=== PATIENT | female | born 1985 | race Caucasian/White ===

== ENCOUNTER 2017-11-15 18:50 | Emergency (ER) | payer BC, SELFPAY ==
[2017-11-15 18:51] VITALS: BP 139/84; PULSE 110; RESP 19; TEMP 37.5; O2SAT 100; BMI 34.9
--- NOTE | 2017-11-15 19:06 | RAD_ITS ---
STUDY: X-RAY CHEST REASON FOR EXAM: Female, 32 years old. Palpitations and shortness of breath. TECHNIQUE: Single AP portable view of the chest. COMPARISON: None. FINDINGS: The lungs are clear and expanded. There is no demonstrated pleural abnormality. Normal size heart. Normal mediastinum and blake. Normal visualized pulmonary arteries. Normal visualized aortic arch and descending thoracic aorta. Normal visualized thoracic spine. Normal visualized ribs, clavicles, and shoulders. There is no demonstrated abnormality of the visualized soft tissue structures of the upper abdomen. RAD/Chest 1 View (Portable) IMPRESSION: Normal x-ray examination of the chest. Electronically Signed: Young Escobedo MD at 20:08 EST , Service support ,
--- NOTE | 2017-11-15 19:06 | EKG12_ITS ---
Test Reason : DIZZINESS Blood Pressure : / mmHG Vent. Rate : 111 BPM Atrial Rate : 111 BPM P-R Int : 154 ms QRS Dur : 088 ms QT Int : 336 ms P-R-T Axes : 037 019 014 degrees QTc Int : 456 ms Sinus tachycardia Otherwise normal ECG Confirmed by JASE KAUR, AIDEN ([id number]), editor dictionary DUANE HAND ([id number]) on 11/18/2017 3:49:25 PM Referred By: DEBORAH Confirmed By:AIDEN LAGUNA MD
--- NOTE | 2017-11-15 19:11 | ED.DCSUM_ITS ---
- ER Visit Summary Date of Service: 11/15/17 Chief Complaint: [] Palpitations History of Present Illness: The patient is a 32 F [] complaining of palpitations for the last 2 weeks. She reports she presented today because they were getting worse. She is concerned that she is having palpitations secondary to lower GI blood loss secondary to ulcerative colitis. She reports similar presentation requiring blood transfusion at this facility. Reports abdominal cramping with loose stools. Denies fevers. Denies chest pain. Reports mild shortness of breath. She does report looking more pale. Physical Examination: [] Afebrile, tachycardic at 110. Remainder of vital signs are within normal limits. 32-year-old female in no acute distress. HEENT reveals pale conjunctivae. Moist mucous membranes. Cardiovascular exam is regular rhythm with tachycardia. Lungs clear to auscultation. Abdomen is soft and nontender. Test Results: [] CBC reveals a hemoglobin of 5.2. BMP normal. LFTs normal. INR 1.0. Emergency Department Course and Treatment: [] Patient evaluated for lower GI bleed with a history of ulcerative colitis. Hemoglobin returned at 5.2 and 2 units of packed red blood cells were ordered and transfused in the emergency department. Case was discussed with [facility] hospitalist who has excepted the patient in transfer. Patient remained normotensive throughout the ED visit. She received 1 L normal saline upon arrival. Treatment Plan: [] Transfer to [facility]. Transfuse blood, GI consult. Disposition: [] Transfer, stable. Impression: [] Lower GI bleed History of ulcerative colitis Critical CARE time: 45 minutes This note was generated with [employer] dictation software. It may contain incorrect words, spelling, and punctuation that were not noted in review of the chart prior to signing ED Disposition - Plan for ED Patient: Chief Complaint: Palpitations Referrals: Ranjit Marrufo MD [Primary Care Provider] -
[2017-11-15 19:32] VITALS: PULSE 112; RESP 20
[2017-11-15] MEDS: 0.9% Normal Saline 1,000 ML 1000 ML IV (19:35)
[2017-11-15 19:36] LABS: Absolute Neutrophil Count 6.3 X10^3/uL (2.0-7.7); Basophil# 0.02 X10^3/uL; Basophil% 0.2 % (0-1); Eosinophil# 0.16 X10^3/uL; Eosinophils% 1.7 % (0-5); Hematocrit 19.9 % (37-47); Lymphocyte % 25.9 % (19-41); Mean Corp Hgb Conc 26.6 g/gl (32-36); Mean Corpuscular Hgb 17.9 pg (27.0-32.0); Mean Corpuscular Volume 67.2 fL (81-99); Mean Platelet Vol. 9.1 fl (6.2-12.0); Monocyte% 6.2 % (0-10); Neutrophil # 6.34 X10^3/uL (2.7-7.7); Neutrophil % 65.6 % (47-70); POSITIVE COUNT YES; POSITIVE DIFFERENTIAL NO; POSITIVE MORPHOLOGY YES; Platelet Count 471 K/mm3 (150-450); RBC Distribution Width CV 17.3 % (11.6-14.6); Red Blood Count 2.96 M/mm3 (4.2-5.4); White Blood Count 9.7 K/mm3 (4.4-11.0)
[2017-11-15 19:39] LABS: Hemoglobin 5.3 g/dl (12.0-15.0)
[2017-11-15 19:40] LABS: Partial Thromboplast Time 28.3 Seconds (24.1-36.2)
--- NOTE | 2017-11-15 19:40 | ED.RN ---
HEMOGLOBIN 5.3. DR. DANG AWARE.
[2017-11-15 19:44] LABS: ALB/GLOB Ratio 0.7 RATIO (0.9-2.4); AST(SGOT) 8 U/L (15-37); Alanine Aminotransfer ALT/SGPT 10 U/L (13-56); Albumin, Serum 3.1 g/dL (3.2-5.0); Alkaline Phosphatase 72 U/L (45-117); Anion Gap 8 (5-15); BUN 9 mg/dL (7-18); BUN/Creat Ratio 13.6 RATIO (10-20); Calcium,Total 8.4 mg/dL (8.5-10.1); Chloride 104 mmol/L (98-107); Creatinine, Serum 0.66 mg/dL (0.55-1.02); EST Glomerular Filtration Rate 111 mL/min (>60); Est Glom Filt Rate - Afr Amer 135 mL/min (>60); Globulin 4.5 g/dL (2.2-4.2); Glucose 104 mg/dL (74-106); Potassium 3.6 mmol/L (3.5-5.1); Protein, Total 7.6 g/dL (6.4-8.2); Sodium Level 140 mmol/L (136-145)
[2017-11-15 19:56] LABS: Pregnancy, Serum, hCG Quali. NEGATIVE Negative (0-9 Nonpreg)
[2017-11-15 20:17] LABS: Differential Indicated SCAN CRITERIA MET
[2017-11-15 20:18] LABS: Anisocytosis 2+; Differential Comment SCANNED; Hypochromasia 2+; Microcytosis 2+; Ovalocyte RARE; Polychromasia 1+
[2017-11-15 21:06] VITALS: BP 136/74; PULSE 108; RESP 22; TEMP 36.6; O2SAT 99
[2017-11-15 21:10] VITALS: BP 136/74; PULSE 114; RESP 18; O2SAT 98
--- NOTE | 2017-11-15 21:42 | NURSING ---
GOING TO [facility] DR. SHAFER ACCEPTING [id number] REPORT
--- NOTE | 2017-11-15 22:19 | NURSING ---
report called to transfer hospital. Johanna is RN that will have pt at [facility].
[2017-11-17 13:21] LABS: Pathologist Review Reviewed
== END 2017-11-15 23:10 | disposition short-term general hospital (02) ==
LOC: ED 19:50
PROVIDERS: Emergency Provider Emergency Medicine; Family Provider Family Medicine; PCP Family Medicine
DX: R00.2 Palpitations (principal); K51.90 Ulcerative colitis, unspecified, without complications; K92.2 Gastrointestinal hemorrhage, unspecified; Z79.899 Other long term (current) drug therapy
CPT/HCPCS: 36430; 71045; 80053; 84703; 85025; 85610; 85730; 86850; 86900; 86920; 86922; 93005; 96360; 96361; 99285; J7030; P9016; A4216

== ENCOUNTER 2018-01-12 21:42 | Emergency (ER) | payer BC, SELFPAY ==
[2018-01-12 21:45] VITALS: BP 138/96; PULSE 91; RESP 18; TEMP 37.1; O2SAT 98; BMI 35.4
--- NOTE | 2018-01-12 22:38 | ED.DCSUM_ITS ---
- ER Visit Summary Date of Service: 01/12/18 Chief Complaint: Stoma bleeding History of Present Illness: The patient is a 32 F with history of ulcerative colitis who is 2 weeks status post total colectomy at [facility] by Dr. Lebron presents to the emergency department with some bleeding from her stoma. The patient does change her ostomy bag at home. She states she noticed a scant amount of blood around it today and did not have a second back to change it. She denies any increasing pain. She has been having normal bowel movements. She denies any fevers or chills. She denies any other systemic symptoms. Physical Examination: Exam is relatively unremarkable. Abdomen soft, nondistended, nontender. There is some ecchymosis in the right lower quadrant around the skin. Stoma is right side of the umbilicus. Ostomy is removed. There is some mild erythema surrounding the stoma site, the stoma itself was pink. There is some mild bleeding from the skin. There is no significant cellulitis. There was no purulence. Test Results: [] Emergency Department Course and Treatment: There did seem to be some mild erythema around the skin at the edge of the stoma site. There is no dehiscence. I do feel this is likely because of the moistness of the area. There is no cellulitis. There is no evidence of deep abscess or purulent drainage. I did discuss case with the colorectal fellow at [facility]. They are comfortable at this time holding on antibiotics and I feel this is reasonable. Patient's ostomy was changed. At this time, I do feel that she is safe for outpatient therapy. She will return with any worsening symptoms. Treatment Plan: [] Disposition: Discharge Impression: Postoperative bleeding This note was generated with [employer] dictation software. It may contain incorrect words, spelling, and punctuation that were not noted in review of the chart prior to signing ED Disposition - Plan for ED Patient: Chief Complaint: Wound Check Instructions: ED Wound Check Post Op Bleeding Referrals: Ranjit Marrufo MD [Primary Care Provider] -
== END 2018-01-12 23:25 | disposition home or self-care (01) ==
LOC: ED 22:44
PROVIDERS: Emergency Provider Emergency Medicine; Family Provider Family Medicine; PCP Family Medicine
DX: L76.22 Postprocedural hemorrhage of skin and subcutaneous tissue following other procedure (principal); Y83.3 Surgical operation with formation of external stoma as the cause of abnormal reaction of the patient, or of later complication, without mention of misadventure at the time of the procedure; Y92.9 Unspecified place or not applicable; K51.90 Ulcerative colitis, unspecified, without complications; Z79.899 Other long term (current) drug therapy
CPT/HCPCS: 99282

== ENCOUNTER → 2018-01-22 13:20 | Outpatient (CLI) | payer BC, SELFPAY ==
[2018-01-26 12:53] LABS: HPV Reflexed? NOT INDICATED
== END ==
PROVIDERS: Visit Provider Obstetrics & Gynecology
DX: Z12.4 Encounter for screening for malignant neoplasm of cervix (principal)
CPT/HCPCS: 88175; G0145

== ENCOUNTER → 2019-11-16 14:34 | Outpatient (CLI) | payer BC, SELFPAY ==
[2019-11-16 18:28] LABS: Chlamydia Trachomatis by PCR Negative (Negative); Neisserai gonorrhoeae by PCR Negative (Negative); Probe Check PASS; Sample Adequacy Control PASS; Specimen Processing Control PASS
== END ==
PROVIDERS: PCP Family Medicine; Visit Provider Obstetrics & Gynecology
DX: Z11.3 Encounter for screening for infections with a predominantly sexual mode of transmission (principal)
CPT/HCPCS: 87491; 87591

== ENCOUNTER 2019-12-11 00:24 | Emergency (ER) | payer BC, SELFPAY ==
[2019-12-11 00:25] VITALS: BP 125/78; PULSE 83; RESP 15; TEMP 36.6; O2SAT 99; BMI 37.5
--- NOTE | 2019-12-11 00:42 | US_ITS ---
STUDY: FIRST TRIMESTER OBSTETRICAL ULTRASOUND REASON FOR EXAM: Female, 34 years old patient with abdominal cramping and constipation. LMP: October 07, 2019 TECHNIQUE: Transabdominal and Transvaginal TECHNICAL QUALITY: Adequate. PRIOR ULTRASOUND: Prior comparison studies are not available for review at this time. FINDINGS: There is visualization of a single gestational sac in a normal intrauterine position. The mean sac diameter (MSD) measures 4.4 cm, indicating an estimated gestational age (EGA) of 10 weeks, 1 days. The gestational sac shape is within normal limits. There is a visualized yolk sac. . The placenta is non-visualized. Appears to be a perigestational collection measuring 7.4 x 5.7 x 27.4 mm. There is visualization of a live embryo. The crown-rump length (CRL) measures 3 cm, indicating an estimated gestational age (EGA) of 9 weeks, 6 days. There is demonstrated cardiac activity with a heart rate of 146 bpm. The estimated gestation age (EGA) by LMP is 9 weeks, 2 days. The estimated date of delivery (MARGA) by LMP is July 13, 2020. The estimated gestation age (EGA) by US is 10 weeks, 0 days. The estimated date of delivery (MARGA) by US is July 08, 2020.. The uterus measures 11.5 x 6.6 x 7.5 cm.. There is no demonstrated uterine fibroid. The cervix is closed. The right ovary measures 2.9 x 1.3 x 2.0 cm. There is no right ovarian cyst. There is no visualized right adnexal mass or complex lesion. The left ovary measures 3.4 x 1.8 x 2.6 cm.. There is a complex ovarian cyst possibly arising corpus luteum measuring 2.3 x 1.6 x 2.3 cm. There is no visualized left adnexal mass or complex lesion. There is no fluid in the cul de sac. US/Transvaginal w/Preg US IMPRESSION: 1. Single living intrauterine gestation with estimated gestational age by size of 10 weeks 0 days. 2. Large subchorionic hemorrhage. Electronically Signed: Melyssa Kuo MD at 3:00 EDT , Service support ,
[2019-12-11] MEDS: 0.9% Normal Saline 1,000 ML 150 ML IV (00:53)
[2019-12-11 01:05] LABS: Absolute Neutrophil Count 5.4 X10^3/uL (2.0-7.7); Basophil# 0.01 X10^3/uL; Basophil% 0.1 % (0-1); Eosinophil# 0.04 X10^3/uL; Eosinophils% 0.5 % (0-5); Hematocrit 37.2 % (37-47); Hemoglobin 11.7 g/dL (12.0-15.0); Lymphocyte % 32.5 % (19-41); Mean Corp Hgb Conc 31.5 g/dL (32-36); Mean Corpuscular Hgb 27.3 pg (27.0-32.0); Mean Corpuscular Volume 86.9 fL (81-99); Mean Platelet Vol. 11.1 fl (6.2-12.0); Monocyte# 0.34 X10^3/uL; Monocyte% 3.9 % (0-10); NRBC Flagged by Analyzer 0 % (0-5); Neutrophil % 62.8 % (47-70); POSITIVE COUNT YES; Platelet Count 212 K/mm3 (150-450); RBC Distribution Width CV 13.3 % (11.6-14.6); RBC Distribution Width SD 42.5 fl (35.1-43.9); Red Blood Count 4.28 M/mm3 (4.2-5.4); White Blood Count 8.6 K/mm3 (4.4-11.0)
[2019-12-11 01:07] LABS: Bacteria 0 SEEN /hpf (None Seen)
[2019-12-11 01:08] LABS: Color, Urine Yellow (Yellow); Glucose, Dipstick Normal (Normal); Ketone-Dipstick 5 mg/dl (Negative); Leukocyte Esterase-Dipstick 500 /ul (Negative); Nitrite-Dipstick Negative (Negative); Occult Blood-Urine 10 /ul (Negative); Protein-Dipstick Negative (Negative); Urine Bilirubin Dipstick Negative (Negative); Urine Clarity Clear (Clear); Urine Urobilinogen Normal (Normal)
[2019-12-11 01:10] LABS: Differential Indicated SCAN CRITERIA MET
--- NOTE | 2019-12-11 01:15 | RAD_ITS ---
STUDY: X-RAY - ABDOMEN/PELVIS REASON FOR EXAM: Female, 34 years old patient with lower abdominal pain starting today. Patient is 9 weeks . Past medical history of ulcerative colitis and colectomy. TECHNIQUE: Single AP view of the abdomen / pelvis. COMPARISON: Prior comparison studies are not available for review at this time. FINDINGS: There is an unremarkable bowel gas pattern. There is no demonstrated free abdominal air. There is no obvious organomegaly, mass, dilated bowel or pathologic calcifications. Normal soft tissue structures. Normal visualized osseous structures. RAD/Abdomen Single View IMPRESSION: No radiographic evidence of acute intra-abdominal disease. Electronically Signed: Melyssa Kuo MD at 2:01 EDT , Service support ,
[2019-12-11 01:20] LABS: Mucous, Urine 2+ /hpf (<or=2+)
[2019-12-11 01:23] LABS: Red Blood Cells-Urine 0-5 SEEN /hpf (0-5); Squamous Epithelial Cells - UA 0-5 SEEN /hpf (5-10); Transitional Epithelial - Ur 0-5 SEEN /hpf (0-5)
[2019-12-11 01:26] LABS: White Blood Cells 25-50 SEEN /hpf (0-5)
[2019-12-11 01:30] LABS: ALB/GLOB Ratio 0.7 RATIO (0.9-2.4); AST(SGOT) 24 U/L (15-37); Alanine Aminotransfer ALT/SGPT 34 U/L (13-56); Albumin, Serum 3.3 g/dL (3.2-5.0); Alkaline Phosphatase 82 U/L (45-117); Anion Gap 3 (5-15); BUN 6 mg/dL (7-18); BUN/Creat Ratio 9.1 RATIO (10-20); Calcium,Total 8.9 mg/dL (8.5-10.1); Chloride 104 mmol/L (98-107); Creatinine, Serum 0.66 mg/dL (0.55-1.02); EST Glomerular Filtration Rate 111 mL/min (>60); Est Glom Filt Rate - Afr Amer 134 mL/min (>60); Estimated Creatinine Clearance 101.23 ml/min; Globulin 4.5 g/dL (2.2-4.2); Glucose 100 mg/dL (74-106); Lipase 66 U/L (73-393); Protein, Total 7.8 g/dL (6.4-8.2); Sodium Level 134 mmol/L (136-145)
[2019-12-11 01:48] LABS: Differential Comment SCANNED
[2019-12-11] MEDS: Ceftriaxone 1 GM/50 ML BAG IV (02:07)
--- NOTE | 2019-12-11 03:15 | ED.VISSUMM ---
- ER Visit Summary Date of Service: 12/11/19 Chief Complaint: [Abdominal pain] History of Present Illness: The patient is a 34 F [presents the emergency department abdominal pain since around 3 PM. She describes the pain is continuous in the mid abdomen. Patient's had nausea but no vomiting. She denies any diarrhea. She denies any blood in her stool. Patient is G4, P2. Patient states that she is 9 weeks . She is not had any vaginal bleeding. She is not had a pelvic ultrasound yet. Patient denies urinary symptoms. Her last bowel movement was this morning. Patient tells me she has a history of ulcerative colitis and has had a total colectomy. Patient was worried about a possible bowel obstruction.] Physical Examination: [HEENT-PERRLA, EOMI. Cranial nerves II through XII grossly intact. TMs clear. Mucous membranes moist. No adenopathy. Cardiovascular-regular rate and rhythm without murmur or ectopy Lungs-clear to auscultation, chest wall stable without crepitus or subcu emphysema Abdomen-normoactive bowel sounds, soft. Patient has tenderness diffusely over the lower abdomen as well as the mid abdomen. There is no rebound, rigidity, or peritoneal signs. No masses palpated. Extremities-intact ?4, normal range of motion, normal pulses, atraumatic] Test Results: [CBC with differential obtained showed a normal white count of 8.6, hemoglobin 11.7, hematocrit 37, platelets 212. Chemistries unremarkable. LFTs were normal. Lipase was 66. Urinalysis was significant for 500 leukocyte esterase as well as 25-50 WBCs and 0-5 RBCs. Patient had 0 bacteria noted. Her quantitative hCG was 55,311. She was a positive. Pelvic ultrasound obtained showed a single live intrauterine measuring 10 weeks with a large subchorionic hemorrhage measuring 7.4 x 5.7 x 27.4 mm. heart tones were 146.] Emergency Department Course and Treatment: [Patient was given Rocephin 1 g IV. Patient did not want thing for pain.] Treatment Plan: [Case was discussed with [employer]ARKING [employer] ATTENDANT AND CASHIER on-call Dr. Montano who agreed with plan for outpatient antibiotic treatment for possible UTI. Patient to follow-up with her [employer] ATTENDANT AND C[employer]IER within next 3 to 5 days. She is advised to return if worsening pain, fever, vomiting, or condition should worsen anyway.] Disposition: [Discharged home in stable condition] Impression: [UTI Abdominal pain] This note was generated with [employer] dictation software. It may contain incorrect words, spelling, and punctuation that were not noted in review of the chart prior to signing ED Disposition - Plan for ED Patient: Referrals: Ranjit Marrufo MD [Primary Care Provider] -
--- NOTE | 2019-12-11 03:19 | ED.DEP ---
ED Disposition - Plan for ED Patient: Instructions: ED CYSTITIS Female Adult Prescriptions: Cephalexin [Keflex] 500 mg PO Q6 #40 cap Prescription Printed Referrals: Ranjit Marrufo MD [Primary Care Provider] - Tessa De Luna CNM [Certified Nurse Channel Sales Manager] - 3-5 Days
[2019-12-11 04:21] VITALS: BP 120/80; BP 122/80; PULSE 77; RESP 16; O2SAT 98
== END 2019-12-11 04:05 | disposition home or self-care (01) ==
PROVIDERS: Emergency Provider Emergency Medicine; PCP Family Medicine
DX: O23.41 Unspecified infection of urinary tract in pregnancy, first trimester (principal); Z3A.09 9 weeks gestation of pregnancy
CPT/HCPCS: 74018; 76817; 80053; 81001; 83690; 84702; 85025; 86900; 86901; 87086; 87088; 96361; 96365; 99284; J7030; A4216

== ENCOUNTER → 2019-12-23 | Outpatient (CLI) | payer BC, SELFPAY ==
[2019-12-11 00:25] VITALS: BMI 37.5
[2019-12-23 16:10] LABS: Absolute Lymphocyte Count 2.24 X10^3/uL (0.83-4.51); Absolute Neutrophil Count 5.5 X10^3/uL (2.0-7.7); Basophil# 0.01 X10^3/uL; Basophil% 0.1 % (0-1); Eosinophil# 0.04 X10^3/uL; Eosinophils% 0.5 % (0-5); Hematocrit 35.5 % (37-47); Hemoglobin 11.1 g/dL (12.0-15.0); Lymphocyte # 2.24 X10^3/ul (4.0); Lymphocyte % 27.5 % (19-41); Mean Corp Hgb Conc 31.3 g/dL (32-36); Mean Corpuscular Volume 86.4 fL (81-99); Mean Platelet Vol. 11.1 fl (6.2-12.0); Monocyte# 0.36 X10^3/uL; Monocyte% 4.4 % (0-10); NRBC Flagged by Analyzer 0 % (0-5); Neutrophil # 5.47 X10^3/uL (2.7-7.7); Platelet Count 262 K/mm3 (150-450); RBC Distribution Width CV 13.4 % (11.6-14.6); RBC Distribution Width SD 41.8 fl (35.1-43.9); Red Blood Count 4.11 M/mm3 (4.2-5.4); White Blood Count 8.2 K/mm3 (4.4-11.0)
[2019-12-23 16:33] LABS: Thyroid Stim Hormone (TSH) 1.43 uIU/mL (0.358-3.74)
[2019-12-23 16:42] LABS: Color, Urine Yellow (Yellow); Glucose, Dipstick Normal (Normal); Ketone-Dipstick Negative (Negative); Leukocyte Esterase-Dipstick 500 /ul (Negative); Nitrite-Dipstick Negative (Negative); Occult Blood-Urine 10 /ul (Negative); Protein-Dipstick Negative (Negative); Specific Gravity, Urine 1.025 (1.002-1.030); Urine Bilirubin Dipstick Negative (Negative); Urine Clarity Cloudy (Clear); Urine Urobilinogen Normal (Normal)
[2019-12-23 16:52] LABS: Amphetamine Urine VISTA NEGATIVE (<1000 ng/mL); Barbiturate Urine VISTA NEGATIVE (< 200 ng/mL); Benzodiazepine Urine VISTA NEGATIVE (< 200 ng/mL); Cocaine Urine VISTA NEGATIVE (< 300 ng/mL); Ecstacy Urine VISTA NEGATIVE (< 500 ng/mL); Methadone Urine VISTA NEGATIVE (< 300 ng/mL); PCP Urine VISTA NEGATIVE (< 25 ng/mL); THC Urine VISTA NEGATIVE (< 50 ng/mL); Vista UDS pH Range 5
[2019-12-23 17:32] LABS: COTININE Drug Screen Negative (<200 ng/mL)
[2019-12-24 09:06] LABS: HIV - WCH Non-Reactive (Nonreactive); Hepatitis B Surface Antigen Non-Reactive (Nonreactive); Hepatitis C Antibody Non-Reactive (Nonreactive); Rubella IgG 50.2 IU/mL
[2019-12-27 12:02] LABS: Vitamin D,25 Hydroxy 22.8 ng/mL
[2019-12-30 00:51] LABS: Prenatal RPR NONREACTIVE (NONREACTIVE)
== END | disposition home or self-care (01) ==
LOC: LABSPEC 15:48
PROVIDERS: PCP Family Medicine; Referring Provider Obstetrics & Gynecology; Visit Provider Obstetrics & Gynecology
DX: Z34.81 Encounter for supervision of other normal pregnancy, first trimester (principal)
CPT/HCPCS: 80307; 81002; 82306; 83036; 84443; 85025; 86703; 86762; 86803; 87340

== ENCOUNTER → 2020-02-16 | Outpatient (CLI) | payer BC, SELFPAY ==
[2020-02-16 15:55] LABS: Hematocrit 34.2 % (37-47); Hemoglobin 10.6 g/dL (12.0-15.0); Mean Corpuscular Hgb 27.4 pg (27.0-32.0); Mean Corpuscular Volume 88.4 fL (81-99); Mean Platelet Vol. 10.7 fl (6.2-12.0); Platelet Count 247 K/mm3 (150-450); RBC Distribution Width CV 14.3 % (11.6-14.6); RBC Distribution Width SD 46.1 fl (35.1-43.9); Red Blood Count 3.87 M/mm3 (4.2-5.4); White Blood Count 9.1 K/mm3 (4.4-11.0)
[2020-02-16 16:29] LABS: Vitamin B12 294 pg/mL (211-911); Vitamin D,25 Hydroxy 23.5 ng/mL
== END | disposition home or self-care (01) ==
LOC: LABSPEC 15:14
PROVIDERS: PCP Family Medicine; Visit Provider Obstetrics & Gynecology
DX: Z34.82 Encounter for supervision of other normal pregnancy, second trimester (principal); Z91.49 Other personal history of psychological trauma, not elsewhere classified
CPT/HCPCS: 82306; 82607; 85027

== ENCOUNTER → 2020-04-12 14:55 | Outpatient (CLI) | payer BC, SELFPAY ==
[2020-04-12 15:43] LABS: Glucose Challenge Gest 1H 50g 143 mg/dL (70-140); Hematocrit 31.1 % (37-47); Hemoglobin 9.9 g/dL (12.0-15.0); Mean Corp Hgb Conc 31.8 g/dL (32-36); Mean Corpuscular Hgb 28.1 pg (27.0-32.0); Mean Corpuscular Volume 88.4 fL (81-99); Mean Platelet Vol. 10.7 fl (6.2-12.0); Platelet Count 234 K/mm3 (150-450); RBC Distribution Width CV 13.8 % (11.6-14.6); RBC Distribution Width SD 44.7 fl (35.1-43.9); Red Blood Count 3.52 M/mm3 (4.2-5.4); White Blood Count 11.3 K/mm3 (4.4-11.0)
== END ==
PROVIDERS: PCP Family Medicine; Visit Provider Obstetrics & Gynecology
DX: Z34.82 Encounter for supervision of other normal pregnancy, second trimester (principal)
CPT/HCPCS: 36415; 82950; 85027

== ENCOUNTER → 2020-04-26 06:47 | Outpatient (CLI) | payer BC, SELFPAY ==
[2020-04-26 08:18] LABS: Glucose GTT-Gestation. Fasting 88 mg/dL (<105)
[2020-04-26 09:15] LABS: Glucose GTT-Gestational 1 Hr 142 mg/dL (<190)
[2020-04-26 10:09] LABS: Glucose GTT-Gestational 2 Hr 132 mg/dL (<165)
[2020-04-26 11:17] LABS: Glucose GTT-Gestational 3 Hr 99 L (<145)
== END ==
PROVIDERS: PCP Family Medicine; Referring Provider Obstetrics & Gynecology; Visit Provider Obstetrics & Gynecology
DX: R73.02 Impaired glucose tolerance (oral) (principal)
CPT/HCPCS: 36415; 82951; 82952

== ENCOUNTER → 2020-05-25 14:36 | Outpatient (CLI) | payer BC, SELFPAY ==
[2020-05-25 16:15] LABS: Hematocrit 33.3 % (37-47); Hemoglobin 10.5 g/dL (12.0-15.0); Mean Corp Hgb Conc 31.5 g/dL (32-36); Mean Corpuscular Hgb 28.1 pg (27.0-32.0); Mean Platelet Vol. 10.6 fl (6.2-12.0); Platelet Count 224 K/mm3 (150-450); RBC Distribution Width CV 14.5 % (11.6-14.6); RBC Distribution Width SD 46.6 fl (35.1-43.9); Red Blood Count 3.74 M/mm3 (4.2-5.4); White Blood Count 9.5 K/mm3 (4.4-11.0)
== END ==
PROVIDERS: PCP Family Medicine; Visit Provider Obstetrics & Gynecology
DX: O99.013 Anemia complicating pregnancy, third trimester (principal); D64.9 Anemia, unspecified; Z3A.00 Weeks of gestation of pregnancy not specified
CPT/HCPCS: 36415; 85027

== ENCOUNTER → 2020-06-08 11:27 | Outpatient (CLI) | payer BC, SELFPAY ==
[2020-06-10 03:06] LABS: Chlamydia By Nucleic Acid AMP Negative (Negative)
[2020-06-10 08:10] LABS: Gonococcus By Nucleic Acid AMP Negative (Negative)
== END ==
PROVIDERS: PCP Family Medicine; Visit Provider Obstetrics & Gynecology
DX: Z36.85 Encounter for antenatal screening for Streptococcus B (principal); Z11.3 Encounter for screening for infections with a predominantly sexual mode of transmission
CPT/HCPCS: 87081; 87491; 87591

== ENCOUNTER → 2020-06-27 10:22 | Outpatient (CLI) | payer BC, SELFPAY | PROVIDERS: PCP Family Medicine; Referring Provider Obstetrics & Gynecology; Visit Provider Obstetrics & Gynecology | DX: Z11.59 Encounter for screening for other viral diseases (principal) | CPT/HCPCS: 87635; C9803; U0003 ==

== ENCOUNTER 2020-06-30 05:00 | Inpatient (IN) | payer BC, SELFPAY ==
[2020-06-30] VITALS (16 sets, daily range): BP systolic 97–133; BP diastolic 43–81; PULSE 77–100; RESP 14–18; TEMP 36.1–36.8; O2SAT 96–100; BMI 38.7
[2020-06-30] MEDS: Lactated Ringers 1,000 ML 999 ML IV (05:35)
[2020-06-30 05:43] LABS: Absolute Lymphocyte Count 2.75 X10^3/uL (0.83-4.51); Basophil# 0.02 X10^3/uL; Basophil% 0.2 % (0-1); Eosinophil# 0.03 X10^3/uL; Eosinophils% 0.3 % (0-5); Hematocrit 33.3 % (37-47); Hemoglobin 10.7 g/dL (12.0-15.0); Lymphocyte # 2.75 X10^3/ul (4.0); Lymphocyte % 24.8 % (19-41); Mean Corp Hgb Conc 32.1 g/dL (32-36); Mean Corpuscular Hgb 28.2 pg (27.0-32.0); Mean Corpuscular Volume 87.9 fL (81-99); Mean Platelet Vol. 11.3 fl (6.2-12.0); Monocyte# 0.29 X10^3/uL; Monocyte% 2.6 % (0-10); NRBC Flagged by Analyzer 0 % (0-5); Neutrophil # 7.95 X10^3/uL (2.7-7.7); Neutrophil % 71.5 % (47-70); Platelet Count 211 K/mm3 (150-450); RBC Distribution Width CV 14.1 % (11.6-14.6); RBC Distribution Width SD 45.1 fl (35.1-43.9); Red Blood Count 3.79 M/mm3 (4.2-5.4); White Blood Count 11.1 K/mm3 (4.4-11.0)
[2020-06-30] MEDS: Acetaminophen 500 MG Tablet 1000 MG PO ×3 (05:44→18:25)
--- NOTE | 2020-06-30 06:57 | HP.PCM_ITS ---
History and Physical Date of Admission: 06/30/20 Chief complaint: Primary section History of present illness: 34-year-old G4, P2 at 39 weeks and 1 day with EDC: 07/04 2 x 7-week ultrasound arrives for elective primary section for history of colectomy and J-pouch. Patient denies chest pain, shortness of breath, nausea vomiting, right upper quadrant pain, headache, visual changes. Denies vaginal bleeding and leakage of fluid. States good movement Obstetric history G1: SAB 05/16/2010 G2: 41 weeks female 06/25/2012 G3 40 weeks female 01/12/2017 Past medical history: Ulcerative colitis Mesentery artery clot status post colectomy Past surgical history: Colectomy 2018 J-pouch 2018 [facility] [place] teeth extraction Tonsils and adenoids Allergies: No known drug allergies Social: Former smoker denies alcohol or drug use Family history: Denies history of DVT or PE Review of systems: Besides above pertinent positives for review of systems performed found to be negative Physical exam: Vital Signs Temp Pulse Resp BP Pulse Ox 06/30/20 06:05 97.8 F 100 14 133/81 H 96 General: Well-appearing no acute distress HEENT: Normocephalic atraumatic no cervical lymphadenopathy noted Cardiac: Regular rate and rhythm no murmurs rubs or gallops Respiratory: Clear to oscillation bilateral no wheezes or crackles Abdomen soft, nontender, gravid. Positive bowel sounds Extremities: No peripheral edema normal peripheral pulses Psych: Normal affect normal demeanor nonpressured speech Mom's Labs & Results 06/30/20 06/30/20 05:35 05:35 WBC 11.1 H RBC 3.79 L Hgb 10.7 L Hct 33.3 L MCV 87.9 MCH 28.2 MCHC 32.1 RDW Std Deviation 45.1 H RDW Coeff of Sherine 14.1 Plt Count 211 MPV 11.3 Immature Gran % (Auto) 0.600 Neut % (Auto) 71.5 H Lymph % (Auto) 24.8 Throckmorton % (Auto) 2.6 Eos % (Auto) 0.3 Baso % (Auto) 0.2 Absolute Neuts (auto) 8.0 H Absolute Lymphs (auto) 2.75 Nucleated RBC % 0 Blood Type Pending Antibody Screen Pending Labs Blood Type: A RH: POSITIVE RPR/VDRL/Syphilis Nonreactive Rubella status Immune HbSAg Negative Date Done: 12/23/19 Chlamydia Negative Gonorrhea Negative HIV/AIDS Non-Reactive Group B Strep: Negative Assessment and plan: Is a 34-year-old G4, P2 at 39 weeks and 1 day for elective primary section for history of colectomy and J-pouch. -Admit labor and delivery -CEFM -2 g Ancef -Routine orders -History of colectomy and J-pouch. Discussed with anesthesia attempted J-pouch prior to surgery. Elective surgery via section based on history and risk for obstetric tears that could damage or affect the J-pouch. -History of mesenteric artery clot: Patient with clot complication in the mesentery artery after colectomy. Although this is not an indication for anticoagulation after discussion with the patient and primary surgeon will anticoagulate postoperatively. Including 6 weeks . Patient understands the lack of evidence based on this and risks with anticoagulation. -Anesthesia to see
[2020-06-30] MEDS: Sodium Citrate/Citric Acid 30 ML UDC PO (07:12)
[2020-06-30] MEDS: Cefazolin 2 GM in 0.9% Normal Saline 100 ML IV (07:12)
--- NOTE | 2020-06-30 08:16 | DCINST_ITS ---
<Diogenes Kuo - Last Filed: 06/30/20 08:16> Discharge Diet: No Restrictions Discharge Activity: Return to Normal Activity, May not drive while taking narcotic pain medications., - - No tub baths for 2 weeks May resume sexual activity in: 2 weeks Lifting Restrictions: No lifting over 25 to 30 pounds for 2 to 3 weeks Call your doctor if your incision/area has: Foul Smelling Discharge Call your doctor if you observe: Fever of 101 or Higher, Shortness of breath, Chest pain Additional Instructions: If you experience any of the following, contact your healthcare provider. * Bleeding that soaks a pad every hour for 2 hours * Fever 100.4 or higher * Unrelieved incision or abdominal pain * Swelling, redness, discharge or bleeding from your incision or episiotomy site * Your incision begins to separate * Problems urinating (including inability to urinate or burning while urinating). * Visual changes * Severe headache * Flu-like symptoms * Pain or redness in one of both of your breasts * Pain, warmth, tenderness or swelling in your legs, especially the calf area * Frequent nausea and vomiting * Symptoms of depression or anxiety If you experience any of the following, call 911 or go to the nearest Emergency Room. * Chest pain * Problems breathing * Seizure activity * Partial or complete paralysis of a body part, slurred speech, weakness or drooping of the face, or a sudden inability to walk or hold your balance Allergies/Adverse Reactions: Allergies adhesive tape Adverse Reaction (Verified 12/11/19 00:29) Rash Medications to take at Discharge Docosahexanoic Acid [ Dha] 06/30/20 Ferrous Sulfate 06/30/20 Folic Acid 06/30/20 Vitamin C 06/30/20 Vitamin D 06/30/20 Oxycodone [Oxyir] 5 mg PO Q6H PRN PRN 3 Days #12 tablet 07/01/20 Follow-Up: Call to make an appointment with your doctor for an incision check in 1-2 weeks. You will also need a 6 week post- follow up appointment. Test results from this visit will be discussed in further detail at your follow- up appointment, if applicable. Please Follow Up With: Diogenes Kuo MD When: 2 weeks Primary Care Physician: Ranjit Marrufo MD [Primary Care Provider] - <Kuo,Heidi - Last Filed: 07/01/20 10:53> Additional Instructions: If you experience any of the following, contact your healthcare provider. * Bleeding that soaks a pad every hour for 2 hours * Fever 100.4 or higher * Unrelieved incision or abdominal pain * Swelling, redness, discharge or bleeding from your incision or episiotomy site * Your incision begins to separate * Problems urinating (including inability to urinate or burning while urinating). * Visual changes * Severe headache * Flu-like symptoms * Pain or redness in one of both of your breasts * Pain, warmth, tenderness or swelling in your legs, especially the calf area * Frequent nausea and vomiting * Symptoms of depression or anxiety If you experience any of the following, call 911 or go to the nearest Emergency Room. * Chest pain * Problems breathing * Seizure activity * Partial or complete paralysis of a body part, slurred speech, weakness or drooping of the face, or a sudden inability to walk or hold your balance Follow-Up: Call to make an appointment with your doctor for an incision check in 1-2 weeks. You will also need a 6 week post- follow up appointment. Test results from this visit will be discussed in further detail at your follow- up appointment, if applicable.
--- NOTE | 2020-06-30 08:17 | OP.PCM_ITS ---
Delivery Final MARGA: 07/06/20 Final MARGA Source: US <20 weeks Gestational age: 39 Weeks and 1 Days process automation engineer: Caio Martinez Type of Anesthesia:: Spinal Date of Procedure: 06/30/20 Pre-Operative Diagnosis: Elective, history of J-pouch Post-Operative Diagnosis: Elective, history of J-pouch Description of Procedure: Procedure: Primary low transverse section Via Pfannenstiel incision Surgeon: Diogenes Kuo EBL: 800 cc IV fluids: 1500 cc Urine output: 50 cc Locations: None Specimen: None Findings: Normal uterus, tubes, and ovaries. Female infant in vertex position, Apgars 9/9. Consent: Patient with term with history of J-pouch. After discussion with general surgeon and patient including the risks of obstetrical tears that could damage J-pouch patient elects for primary section via Pfannenstiel incision. Patient understands risk procedure include but not limited to visceral or vascular injury, prolonged hospitalization, blood loss and need for transfusion, reoperation. Patient stated understanding wished to proceed. All questions were answered and consent was signed. Procedure: Patient was brought back to the OR where spinal anesthesia found be adequate. 2 g of Ancef were given for infection prophylaxis. Patient was david draped in a dorsal supine position with leftward tilt. A Pfannenstiel incision was made skin with a scalpel. Incision was carried down the fascia with a scalpel. The fascia was excised extended laterally. Inferior aspect of the fascia was grasped with a Mark clamp and the underlying rectus pronounced muscle dissected off sharply with Esqueda scissors. In a similar fashion superior aspect of the fascia was grasped with a Mark clamp and the underlying rectus muscle dissected off sharply. Peritoneum was entered bluntly at the midline. Peritoneum was extended superiorly and inferiorly with good visualization of bladder. Bladder blade was inserted vesicouterine peritoneum was identified. Bladder flap was developed. Bladder blade was reapproximated in order to keep the bladder out of the operative field. Low transverse uterine incision was mad e. Uterine uterine incision was extended laterally with upper lateral traction. Hand was placed into the hysterotomy and gentle fundal pressure was applied once the bladder blade was removed and the head was brought into the uterine incision. Head and shoulders delivered with ease. Cord was cut and clamped and baby was handed off to nursing. Placenta was delivered via manual extraction. IV oxytocin was initiated on order to initiate uterine contractions. Uterus was exteriorized and wiped with dry laparotomy sponge in order to remove remaining placental membranes. Uterus closed continuous running fashion. Second layer was performed. Good hemostasis noted. Uterus was placed back in the abdominal cavity and incision was reinspected. Good hemostasis noted. Rectus muscles reapproximated. Fascia was closed continuous running fashion. Skin was closed with subcuticular fashion. All counts correct x2. Patient tolerated the procedure well was brought to recovery stable condition.
[2020-06-30] MEDS: Oxytocin 30 units/NS 500 ml 30 UNITS/500 ML IV.SOLN 167 UNITS IV (08:40)
[2020-06-30] MEDS: Lactated Ringers 1,000 ML 100 ML IV (11:42)
[2020-06-30] MEDS: Ketorolac 30 MG/ML Syringe IV ×2 (14:40→20:10)
[2020-06-30] MEDS: 0.9% Saline Lock 10 ML Syringe IV ×2 (17:12→20:11)
[2020-06-30] MEDS: Enoxaparin 40 MG/0.4 ML Syringe SC (20:11)
[2020-07-01] MEDS: Acetaminophen 500 MG Tablet 1000 MG PO ×3 (00:38→13:33)
[2020-07-01] MEDS: 0.9% Saline Lock 10 ML Syringe IV ×3 (00:45→09:15)
[2020-07-01] MEDS: Lactated Ringers 1,000 ML 999 ML IV (00:45)
[2020-07-01] MEDS: Lactated Ringers 1,000 ML 50 ML IV (01:47)
[2020-07-01 06:00] VITALS: BP 107/55; PULSE 76; RESP 16; TEMP 36.8; O2SAT 99
[2020-07-01 06:17] LABS: Hematocrit 25.8 % (37-47); Hemoglobin 8.1 g/dL (12.0-15.0); Mean Corp Hgb Conc 31.4 g/dL (32-36); Mean Corpuscular Hgb 28.6 pg (27.0-32.0); Mean Corpuscular Volume 91.2 fL (81-99); Mean Platelet Vol. 10.6 fl (6.2-12.0); Platelet Count 168 K/mm3 (150-450); RBC Distribution Width CV 14.2 % (11.6-14.6); RBC Distribution Width SD 47.1 fl (35.1-43.9); Red Blood Count 2.83 M/mm3 (4.2-5.4); White Blood Count 10.8 K/mm3 (4.4-11.0)
[2020-07-01] MEDS: Ketorolac 30 MG/ML Syringe IV (09:01)
--- NOTE | 2020-07-01 09:45 | PN.OBGYN_ITS ---
Subjective: POD#1 Lochia minimal. Pain controlled. Voiding spontaneously. - Physical Exam Vitals/I&O's: Vital Signs Temp Pulse Resp BP Pulse Ox 98.2 F 76 16 107/55 L 99 07/01/20 06:00 07/01/20 06:00 07/01/20 06:00 07/01/20 06:00 07/01/20 06:00 Oxygen Delivery Method Room Air Weight: 99.155 kg Body Mass Index (BMI) 38.7 Intake and Output for Last 24 Hours 06/29/20 06/30/20 07/01/20 23:59 23:59 23:59 Intake Total 2310 / 2310 3253.33 / 3253.33 Output Total 350 / 350 800 / 800 Balance 1959 / 1959 2453.33 / 2453.33 General: Oriented x3, No apparent distress HEENT: Atraumatic, Normocephalic Lungs: Normal air movement Cardiovascular: Regular rate Abdomen: Soft - Mildly tender, dressing c/d. uterus below umbilicus Extremities: No edema Neurological: Cranial nerves II-XII grossly intact Psych/Mental Status: Normal Affect, Appropriate Laboratory Results 07/01/20 06:05: WBC 10.8, RBC 2.83 L, Hgb 8.1 L, Hct 25.8 L, MCV 91.2, MCH 28.6, MCHC 31.4 L, RDW Std Deviation 47.1 H, RDW Coeff of Sherine 14.2, Plt Count 168, MPV 10.6 Current Medications Acetaminophen (Acetaminophen 500 Mg Tablet) 1,000 mg PO Q6H [facility] Last Admin: 07/01/20 06:56 Dose: 1,000 mg Documented by: Bisacodyl (Bisacodyl 10 Mg Suppository) 10 mg RECTAL UD PRN PRN Reason: If no BM Enoxaparin Sodium (Enoxaparin 40 Mg/0.4 Ml Syringe) 40 mg SC DAILY@1999 [facility] Last Admin: 06/30/20 20:11 Dose: 40 mg Documented by: Hydrocortisone (Hydrocortisone 2.5% Crm) 1 applic TOPICAL TID PRN PRN; Protocol PRN Reason: Discomfort Lactated Ringer's () 1,000 mls @ 50 mls/hr IV .Q20H [facility] Stop: 07/01/20 21:44 Last Infusion: 07/01/20 06:51 Dose: Infused Documented by: Ibuprofen (Ibuprofen 600 Mg Tablet) 600 mg PO Q6H [facility] Ondansetron HCl (Ondansetron 4 Mg/2 Ml Vial) 4 mg IV Q4H PRN PRN PRN Reason: Nausea Oxycodone HCl (Oxycodone 5 Mg Tablet) 5 mg PO Q4H PRN PRN PRN Reason: Pain Score 4-10 Prochlorperazine Edisylate (Prochlorperazine 10 Mg/2 Ml Vial) 10 mg IV Q6H PRN PRN PRN Reason: NAUSEA Senna/Docusate Sodium (Senna/Docusate Sodium 1 Tablet) 0 tablet PO DAILY [facility] Last Admin: 06/30/20 13:10 Dose: Not Given Documented by: Simethicone (Simethicone 80 Mg Tablet) 80 mg PO PCHS PRN PRN Reason: Indigestion/stomach pain Sodium Chloride (0.9% Saline Lock 10 Ml Syringe) 5 - 15 ml IV UD PRN PRN Reason: SALINE FLUSH Last Admin: 07/01/20 09:15 Dose: 10 ml Documented by: Medical Necessity - Tobacco Use Smoking Status: Former smoker Assessment/Plan All Active Problems 40 weeks gestation of (Acute) Proteinuria (Acute) 18 weeks gestation of (Acute) Edema during , antepartum (Acute) Hypoalbuminemia (Acute) Electrolyte abnormality (Acute) Diarrhea (Acute) Urinary retention (Acute) 34 yo POD#1 s/p primary section. Complicated by: history of J pouch, acute blood loss anemia secondary to surgery (iron on home going), resolved post operative urinary retention. Breast feeding. to see today. Home this evening.
[2020-07-01 10:00] VITALS: BP 99/49; PULSE 74; RESP 16; TEMP 36.1
[2020-07-01 14:30] VITALS: BP 121/74; PULSE 80; RESP 16; TEMP 37.1
[2020-07-01] MEDS: Ibuprofen 600 MG Tablet PO (15:53)
== END 2020-07-01 17:50 | disposition home or self-care (01) | DRG 787 ==
PROVIDERS: Admitting Provider Obstetrics & Gynecology; PCP Family Medicine; Referring Provider Obstetrics & Gynecology; Visit Provider Obstetrics & Gynecology
PROC: 10D00Z1 Extraction of Products of Conception, Low, Open Approach (ICD-10-PCS; CPT 59514; principal; 2020-06-30 07:15)
DX: O99.62 Diseases of the digestive system complicating childbirth (principal); K51.90 Ulcerative colitis, unspecified, without complications; D62 Acute posthemorrhagic anemia; N99.89 Other postprocedural complications and disorders of genitourinary system; R33.8 Other retention of urine; Y83.8 Other surgical procedures as the cause of abnormal reaction of the patient, or of later complication, without mention of misadventure at the time of the procedure; Y92.239 Unspecified place in hospital as the place of occurrence of the external cause; Z87.891 Personal history of nicotine dependence; Z90.49 Acquired absence of other specified parts of digestive tract; Z3A.39 39 weeks gestation of pregnancy; Z37.0 Single live birth
CPT/HCPCS: 85025; 85027; 86850; 86900; 86901; 99218; 99251; J7120; A4216; G0378; G0463; J2405

== ENCOUNTER → 2021-01-15 16:43 | Outpatient (CLI) | payer BC, SELFPAY ==
[2020-06-30 05:45] VITALS: BMI 38.7
[2021-01-18 15:36] LABS: HPV APTIMA, High Risk Negative (Negative)
== END ==
PROVIDERS: Visit Provider Obstetrics & Gynecology
DX: Z12.4 Encounter for screening for malignant neoplasm of cervix (principal)
CPT/HCPCS: 87624; 88175; G0145

== ENCOUNTER 2023-01-09 14:18 | Emergency (ER) | payer BC, SELFPAY ==
[2023-01-09 14:19] VITALS: BP 121/99; PULSE 140; RESP 18; TEMP 36.1; O2SAT 97; BMI 32.5
[2023-01-09 14:38] LABS: Absolute Neutrophil Count 5.8 X10^3/uL (2.0-7.7); Basophil# 0.02 X10^3/uL; Basophil% 0.3 % (0-1); Eosinophil# 0.01 X10^3/uL; Eosinophils% 0.1 % (0-5); Hematocrit 47.3 % (37-47); Lymphocyte % 19.3 % (19-41); Mean Corp Hgb Conc 31.7 g/dL (32-36); Mean Corpuscular Hgb 26.8 pg (27.0-32.0); Mean Corpuscular Volume 84.5 fL (81-99); Mean Platelet Vol. 10.1 fl (6.2-12.0); Monocyte# 0.46 X10^3/uL; Monocyte% 5.9 % (0-10); NRBC Flagged by Analyzer 0 % (0-5); Neutrophil # 5.75 X10^3/uL (2.7-7.7); Neutrophil % 73.9 % (47-70); Platelet Count 413 K/mm3 (150-450); RBC Distribution Width CV 13.6 % (11.6-14.6); RBC Distribution Width SD 41.9 fl (35.1-43.9); White Blood Count 7.8 K/mm3 (4.4-11.0)
[2023-01-09 14:57] LABS: Internal QC Validated? YES +Cl - CLEAR BKGD; Pregnancy, Serum, hCG Quali. NEGATIVE Negative
[2023-01-09 15:02] LABS: ALB/GLOB Ratio 0.8 RATIO (0.9-2.4); AST(SGOT) 12 U/L (15-37); Alanine Aminotransfer ALT/SGPT 25 U/L (13-56); Albumin, Serum 4.2 g/dL (3.2-5.0); Alkaline Phosphatase 78 U/L (45-117); Anion Gap 2 (5-15); BUN 21 mg/dL (7-18); BUN/Creat Ratio 13.7 RATIO (10-20); Calcium,Total 9.5 mg/dL (8.5-10.1); Chloride 104 mmol/L (98-107); Creatinine, Serum 1.53 mg/dL (0.55-1.02); EST Glomerular Filtration Rate 41 mL/min (>60); Est Glom Filt Rate - Afr Amer 50 mL/min (>60); Estimated Creatinine Clearance 40.59 ml/min; Globulin 5.6 g/dL (2.2-4.2); Glucose 114 mg/dL (74-106); Potassium 4.1 mmol/L (3.5-5.1); Protein, Total 9.8 g/dL (6.4-8.2); Sodium Level 128 mmol/L (136-145)
[2023-01-09 15:17] VITALS: BP 109/80; PULSE 117; RESP 18; O2SAT 97
--- NOTE | 2023-01-09 15:50 | EDS_ITS ---
HPI HPI - GI History of Present Illness Chief Complaint: Nausea/Vomiting/Diarrhea Narrative Narrative: 37-year-old female presenting with nausea, vomiting, diarrhea. Is been ongoing for the last couple of days. She does not know if she had a fever or not becaus e she not checked her temperature. She has had chills and has felt sweaty at times. She says she has not had any food or fluid for 2 days. She started to feel cramping in her muscles and especially her lower extremities. She denies any messi shortness of breath and feels like her ribs are spasming. She feels in her abdomen as well. Patient with history of total colectomy couple years ago. No urinary or vaginal complaints. No other sick family members in the household. No exotic food or travel. [facility] Medical History Anemia Home Medications Ferrous Sulfate Check with primary doctor 06/30/20 [History Last Taken Unknown] Vitamin D Check with primary doctor 06/30/20 [History Last Taken Unknown] ondansetron 4 mg disintegrating tablet 4 mg PO Q8H PRN PRN Nausea #14 tabs 01/09/23 [Rx Last Taken Unknown] Allergy/AdvReac Type Severity Reaction Status Date / Time adhesive tape AdvReac Rash Verified 01/09/23 14:21 Surgical History History of total colectomy Social History Smoking Status: Current every day smoker tobacco type: cigarettes ROS ROS ED Constitutional Constitutional ED: Reports chills and sweats ENT ENT ED: Denies rhinorrhea or sore throat Cardiovascular Cardiovascular: Denies chest pain or palpitations Respiratory/Chest Respiratory/Chest: Denies cough or dyspnea Gastrointestinal Gastrointestinal: Reports diarrhea, nausea and vomiting Genitourinary Genitourinary ED: Denies dysuria or hematuria Musculoskeletal Musculoskeletal: Reports myalgias Integumentary Denies abscess or Abrasions Neurologic Neurologic: Denies headache(s) or paresthesias Psychiatric Psychiatric: Denies anxiety or depression Endocrine Endocrinology: Denies polydipsia or polyphagia EXAM Physical Exam Const Vital Signs: 01/09/23 14:19 01/09/23 15:17 01/09/23 17:35 Temperature 96.9 F L Temperature Source Temporal Pulse Rate 140 H 117 H 90 Respiratory Rate 18 18 16 Blood Pressure 121/99 H 109/80 116/83 H Blood Pressure Mean 106 89 94 Pulse Ox 97 97 97 Oxygen Delivery Method Room Air Room Air Room Air Positive well nourished General Appearance ED: NAD; Negative for pallor HEENT Reports moist mucous membranes atraumatic and trauma Eyes PERRL General Eye ED: Negative for pale conjunctiva or scleral icterus Resp normal respiratory effort and clear to auscultation bilaterally Auscultation: Negative for rales, rhonchi or wheezes Cardio regular rate and regular rhythm GI non-tender and non-distended Extremity full ROM Neuro CN's II-XII intact bilaterally and moves all extremities Sensorium / Orientation: alert Motor Exam: strength 5/5 throughout and general weakness Psych mental status grossly normal and thought process normal Skin General Skin Exam: Negative for jaundice or pallor MDM MDM MDM Narrative Medical decision making narrative: Patient presenting with nausea, vomiting, diarrhea. She does not have any messi abdominal pain. Her abdominal exam is benign. Differential includes viral gastroenteritis, dehydration, electrolyte abnormalities, early , patient medicated with Zofran 4 mg IV as well as 2 L normal saline since her heart rate is 140 on arrival. CBC to assess white blood cell count, hemoglobin, platelets, differential. CMP to assess liver function, renal function, glucose, anion gap. CBC shows no leukocytosis. Hemoglobin macular stable. Platelets are normal. Creatinine elevated at 1.53. Sodium slightly low at 128. LFTs are normal. Serum test is normal. Magnesium normal at 2. Patient feeling better on reevaluation. I will give her Zofran for home. She is counseled to hydrate. If she has any worsening symptoms return to the ER. Impression: 1. Nausea/vomiting 2. Dehydration Lab Data Attestation: I reviewed the patient's lab results. Labs: Laboratory Results - last 24 hr 01/09/23 01/09/23 01/09/23 14:28 14:28 14:28 WBC 7.8 RBC 5.60 H Hgb 15.0 Hct 47.3 H MCV 84.5 MCH 26.8 L MCHC 31.7 L RDW Std Deviation 41.9 RDW Coeff of Sherine 13.6 Plt Count 413 MPV 10.1 Immature Gran % (Auto) 0.500 Neut % (Auto) 73.9 H Lymph % (Auto) 19.3 [place] % (Auto) 5.9 Eos % (Auto) 0.1 Baso % (Auto) 0.3 Absolute Neuts (auto) 5.8 Absolute Lymphs (auto) 1.50 Nucleated RBC % 0 Sodium 128 L Potassium 4.1 Chloride 104 Carbon Dioxide 22.0 Anion Gap 2 L BUN 21 H Creatinine 1.53 H Estim Creat Clear Calc 40.59 Est GFR (MDRD) Af Amer 50 L Est GFR (MDRD) Non-Af 41 L BUN/Creatinine Ratio 13.7 Glucose 114 H Calcium 9.5 Magnesium Total Bilirubin 0.20 AST 12 L ALT 25 Alkaline Phosphatase 78 Total Protein 9.8 H Albumin 4.2 Globulin 5.6 H Albumin/Globulin Ratio 0.8 L Serum , Qual NEGATIVE 01/09/23 14:28 WBC RBC Hgb Hct MCV MCH MCHC RDW Std Deviation RDW Coeff of Sherine Plt Count MPV Immature Gran % (Auto) Neut % (Auto) Lymph % (Auto) [place] % (Auto) Eos % (Auto) Baso % (Auto) Absolute Neuts (auto) Absolute Lymphs (auto) Nucleated RBC % Sodium Potassium Chloride Carbon Dioxide Anion Gap BUN Creatinine Estim Creat Clear Calc Est GFR (MDRD) Af Amer Est GFR (MDRD) Non-Af BUN/Creatinine Ratio Glucose Calcium Magnesium 2.1 Total Bilirubin AST ALT Alkaline Phosphatase Total Protein Albumin Globulin Albumin/Globulin Ratio Serum , Qual Discharge Plan Triage Chief Complaint: Nausea/Vomiting/Diarrhea ED Provider: Ben Oliveira Dx/Rx/DC Orders Instructions: ED Diet Vomiting Diarrhea Prescriptions: New ondansetron 4 mg tablet,disintegrating 4 mg PO Q8H PRN PRN (Reason: Nausea) Qty: 14 0RF No Action Ferrous Sulfate Vitamin D Primary Care Provider: Ranjit Marrufo Referrals: Ranjit Marrufo MD [Primary Care Provider] - Disposition Disposition: Home, Self Care Discharge Date/Time: 01/09/23 18:00
[2023-01-09 15:55] LABS: Magnesium 2.1 mg/dL (1.6-2.6)
[2023-01-09] MEDS: Ondansetron 4 MG/2 ML Vial IV (16:01)
[2023-01-09] MEDS: 0.9% Normal Saline 1,000 ML 999 ML IV ×2 (16:01→17:08)
[2023-01-09 17:35] VITALS: BP 116/83; PULSE 90; RESP 16; O2SAT 97
== END 2023-01-09 18:00 | disposition home or self-care (01) ==
PROVIDERS: Emergency Provider Student in an Organized Health Care Education/Training Program; PCP Family Medicine; Visit Provider Student in an Organized Health Care Education/Training Program
DX: R11.2 Nausea with vomiting, unspecified (principal); E86.0 Dehydration; R68.83 Chills (without fever); R19.7 Diarrhea, unspecified; F17.210 Nicotine dependence, cigarettes, uncomplicated; Z90.49 Acquired absence of other specified parts of digestive tract
CPT/HCPCS: 80053; 83735; 84703; 85025; 87428; 96361; 96374; 99283; J2405

== ENCOUNTER 2023-12-28 08:28 | Emergency (ER) | payer BC, SELFPAY ==
[2023-12-28 08:29] VITALS: BP 130/88; PULSE 82; RESP 16; TEMP 35.9; O2SAT 98; BMI 31.4
--- NOTE | 2023-12-28 08:53 | CT_ITS ---
STUDY: CT ABDOMEN AND PELVIS WITHOUT CONTRAST REASON FOR EXAM: Female, 38 years old. right flank pain RADIATION DOSAGE (If Supplied By Facility): CTDIvol = ( 14.45 ) mGy, DLP = ( 696.54 ) mGycm TECHNIQUE: Transaxial images were obtained from the dome of the diaphragm to the symphysis pubis without oral contrast, and without intravenous contrast. Sagittal and coronal images were reconstructed. Individualized dose optimization techniques were used for this CT. COMPARISON: None. FINDINGS: The visualized lung bases are unremarkable. The visualized portions of the heart are within normal limits. Normal liver. Normal gallbladder and extrahepatic biliary system. Normal spleen. Normal pancreas. Normal bilateral adrenal glands. Normal right kidney. Normal left kidney. Normal visualized stomach. Normal small intestine. Status post subtotal colectomy. The appendix is visualized and appears normal. Normal abdominal aorta. Normal inferior vena cava. Normal retroperitoneum. Normal urinary bladder. There is a small umbilical hernia containing fat. Normal osseous structures. CT/Abdomen/Pelvis without Cont IMPRESSION: No renal or ureteral stone. Electronically Signed: Ashish Santana MD at 10:49 EDT ,
--- NOTE | 2023-12-28 08:54 | ED.VIS.BACK ---
HPI History of Present Illness Chief Complaint: Back Detail of Chief Complaint: Back pain Informant: patient Narrative Narrative: Patient presents emergency department complaint of back pain started about a week ago. She was seen by her primary care physician and ordered Flexeril. After taking the Flexeril for a few nights she started experiencing muscle spasms in her right lower back. She discontinued the Flexeril. Last night throughout the night she had about 10 episodes of spasms that lasted about a minute or so and then went away. She does feel the pain when she is up and moving but does not have the spasms like she does at night. At times she will have pain radiating down her leg and has some numbness and tingling into her right calf. Patient also late on her menstrual period about 2 weeks. No history of kidney stones. She has noted small amount of blood in her urine at times when wiping but she is not sure if she was getting ready to start her period. Patient denies any injury to her back. [facility] Medical History Anemia Home Medications cyclobenzaprine 10 mg tablet 10 mg PO TID PRN PRN muscle spasm 12/28/23 [History Last Taken Unknown] diazepam 5 mg tablet (Valium) 5 mg PO TID PRN muscle spasm #14 tabs 12/28/23 [Rx Last Taken Unknown] hydrocodone-acetaminophen 5-325mg 5mg-325mg 1 tab PO Q4H PRN PRN Pain 2 days #10 TABLETS 12/28/23 [Rx Last Taken Unknown] methylprednisolone 4 mg tablets in a dose pack (Medrol (Huan)) See Rx Instructions PO .COMPLEX #21 tabs 12/28/23 [Rx Last Taken Unknown] paroxetine HCl 10 mg tablet 10 mg PO DAILY 12/28/23 [History Last Taken Unknown] trazodone 50 mg tablet 50 mg PO QHS 12/28/23 [History Last Taken Unknown] Allergy/AdvReac Type Severity Reaction Status Date / Time adhesive tape AdvReac Rash Verified 12/28/23 08:30 Surgical History History of total colectomy Social History Smoking Status: Current every day smoker tobacco type: cigarettes ROS ROS ED Review of Systems ROS Unobtainable: other Constitutional Constitutional ED: Reports lethargy; Denies chills, fever(s), sweats or weight loss Eyes Eyes: Denies blurry vision, change in vision or diplopia ENT ENT ED: Denies rhinorrhea or sore throat Cardiovascular Cardiovascular: Denies chest pain, orthopnea or racing heartbeat Respiratory/Chest Respiratory/Chest: Denies cough, dyspnea, dyspnea on exertion, orthopnea or sputum Gastrointestinal Gastrointestinal: Denies abdominal pain, diarrhea, nausea or vomiting Genitourinary Genitourinary ED: Denies dysuria, hematuria or urinary frequency Musculoskeletal Musculoskeletal: Reports back pain; Denies arthralgias, myalgias or neck pain Integumentary Denies abscess, Abrasions or rash Neurologic Neurologic: Denies headache(s) or weakness Psychiatric Psychiatric: Denies anxiety, depression or suicidal thoughts Endocrine Endocrinology: Denies polydipsia, polyphagia or polyuria Hematologic/Lymphatic Hematologic/Lymphatic: Denies easy bleeding, easy bruising or lymphadenopathy Allergic/Immunologic Allergic/Immunologic ED: Denies mouth swelling, tongue swelling or urticaria EXAM Physical Exam Const Vital Signs: 12/28/23 08:29 12/28/23 09:00 12/28/23 11:00 Temperature 96.7 F L Temperature Source Temporal Pulse Rate 82 74 71 Respiratory Rate 16 18 16 Blood Pressure 130/88 H 138/82 H 112/73 Blood Pressure Mean 102 100 86 Pulse Ox 98 95 97 Oxygen Delivery Method Room Air Room Air Room Air 12/28/23 11:19 Temperature 98.1 F Temperature Source Pulse Rate 71 Respiratory Rate 16 Blood Pressure 112/73 Blood Pressure Mean 86 Pulse Ox 97 Oxygen Delivery Method Positive well nourished and well developed General Appearance ED: well developed and NAD HEENT Reports TM's clear and moist mucous membranes normocephalic and atraumatic; Negative for trauma or tenderness Tympanic Membrane ED: Yes TM's clear Eyes PERRL and EOMs intact bilaterally General Eye ED: Negative for pale conjunctiva or scleral icterus Neck no lymphadenopathy, supple and no JVD General: Negative for tenderness Chest Wall inspection of chest normal and palpation of chest normal Chest: Negative for tenderness Resp normal respiratory effort and clear to auscultation bilaterally Effort and Inspection: Negative for respiratory distress or pain with movement Auscultation: Negative for rhonchi, wheezes or diminished lung sounds Cardio regular rate, regular rhythm, S1 normal heart sound, S2 normal heart sound and no murmurs Peripheral Pulses: pulses 2+ throughout GI normal to inspection, nondistended, normoactive bowel sounds, soft to palpation, non-tender, non-distended and no masses Back/Spine no CVA tenderness and no thoracic nor lumbar tenderness Back/Spine Narrative: Right lower lumbar paraspinal musculature tenderness on exam. Positive straight leg raise on the right at about 30 degrees while seated. Deep tendon reflexes are plus 2 out of 4 bilaterally at the patella and Achilles. She has normal L5 extension bilaterally. Normal sensation to light touch. Extremity normal to inspection General Extremety ED: Negative for edema General Extremity: Negative for edema Neuro oriented x3, CN's II-XII intact bilaterally, no sensory deficits noted and gait normal Sensorium / Orientation: awake, alert, oriented to person, oriented to place and oriented to time Motor Exam: strength 5/5 throughout and strength abnormal Psych mental status grossly normal Skin no rashes or lesions noted and no wounds MDM MDM MDM Narrative Medical decision making narrative: Patient presents to the emergency department complaint of pain in her right lower back. Complaining of intermittent spasms lasting up to a minute. Complaining of some pain radiating down the right leg. In the differential would be kidney stone versus UTI versus sciatica. IV line established on arrival. CBC with differential white count 10.0 with hemoglobin 11 and platelet count of 270. Chemistries unremarkable. Urinalysis without signs of infection. Serum was negative. I did order a CT scan of the abdomen pelvis without contrast to evaluate further especially given her history of ulcerative colitis and colectomy wanted to rule out other intra-abdominal process such as kidney stone or bowel obstruction. CT scan of the abdomen pelvis was unremarkable. At this point I suspect likely a lumbar radiculopathy as the etiology of her pain. Will treat her with Medrol Dosepak as well as Valium and [place] for pain. Will refer to back specialist for follow-up. Patient advised on signs and symptoms of cauda equina such as weakness to the extremity, loss of bowel or bladder function, or loss of sensation in the groin. Lab Data Attestation: I reviewed the patient's lab results. Labs: Laboratory Results - last 24 hr 12/28/23 09:09 WBC 10.0 RBC 4.18 L Hgb 11.8 L Hct 37.6 MCV 90.0 MCH 28.2 MCHC 31.4 L RDW Std Deviation 42.5 RDW Coeff of Sherine 12.8 Plt Count 270 MPV 10.3 Immature Gran % (Auto) 0.300 Neut % (Auto) 70.3 H Lymph % (Auto) 25.1 [place] % (Auto) 3.3 Eos % (Auto) 0.8 Baso % (Auto) 0.2 Absolute Neuts (auto) 7.0 Absolute Lymphs (auto) 2.51 Nucleated RBC % 0 Sodium 136 Potassium 4.3 Chloride 107 Carbon Dioxide 26.0 Anion Gap 3 L BUN 10 Creatinine 0.67 Estim Creat Clear Calc 112.31 Est GFR (MDRD) Af Amer 128 Est GFR (MDRD) Non-Af 105 BUN/Creatinine Ratio 14.9 Glucose 103 Calcium 8.6 Serum , Qual NEGATIVE Urine Color Yellow Urine Clarity Clear Urine pH 5.0 Ur Specific Sullivan 1.025 Urine Protein 15 H Urine Glucose (UA) Normal Urine Ketones Negative Urine Occult Blood 10 H Urine Nitrite Negative Urine Bilirubin Negative Urine Urobilinogen Normal Ur Leukocyte Esterase 25 H Urine RBC 0 SEEN Urine WBC 0-5 SEEN Ur Squamous Epith Cells 0-5 SEEN Urine Bacteria 1+ Urine Mucus 0 SEEN Radiography Diagnostic Testing: Clinical Impression(s) from Imaging Studies Abdomen/Pelvis CT 12/28/23 08:53 IMPRESSION: No renal or ureteral stone. Electronically Signed: Ashish Santana MD at 10:49 EDT Reading Location ID and State: [facility] / [place] Tel , Service support , Discharge Plan Triage Chief Complaint: Back ED Provider: Pablo Mcconnell Dx/Rx/DC Orders Clinical Impression: Acute lumbar radiculopathy, Back pain Instructions: ED Back Spasm, No Trauma, ED Sciatica Prescriptions: New hydrocodone-acetaminophen [hydrocodone-acetaminophen] 5-325 mg tablet 1 tab PO Q4H PRN PRN (Reason: Pain) 2 Days Qty: 10 0RF methylprednisolone [Medrol (Huan)] 4 mg tablets,dose pack See Rx Instructions .ROUTE .COMPLEX Qty: 21 0RF Rx Instructions: for 6 days diazepam [Valium] 5 mg tablet 5 mg PO TID PRN (Reason: muscle spasm) Qty: 14 0RF No Action cyclobenzaprine 10 mg tablet 10 mg PO TID PRN PRN (Reason: muscle spasm) paroxetine HCl 10 mg tablet 10 mg PO DAILY trazodone 50 mg tablet 50 mg PO QHS Primary Care Provider: Misti Antoine Referrals: Misti Antoine, OLGA-C [Primary Care Provider] - Beto Mendoza DO [Med Staff - Active Staff] - 5-7 Days Disposition Disposition: Home, Self Care Discharge Date/Time: 12/28/23 11:25
[2023-12-28 09:00] VITALS: BP 138/82; PULSE 74; RESP 18; O2SAT 95
[2023-12-28 09:14] LABS: Mucous, Urine 0 SEEN /hpf (<or=2+); Red Blood Cells-Urine 0 SEEN /hpf (0-5)
[2023-12-28] MEDS: 0.9% Normal Saline (1000mL) 1,000 ML 150 ML IV (09:18)
[2023-12-28 09:24] LABS: Absolute Lymphocyte Count 2.51 X10^3/uL (0.83-4.51); Basophil# 0.02 X10^3/uL; Basophil% 0.2 % (0-1); Eosinophil# 0.08 X10^3/uL; Eosinophils% 0.8 % (0-5); Hematocrit 37.6 % (37-47); Hemoglobin 11.8 g/dL (12.0-15.0); Lymphocyte # 2.51 X10^3/ul (0.83-4.51); Lymphocyte % 25.1 % (19-41); Mean Corp Hgb Conc 31.4 g/dL (32-36); Mean Corpuscular Hgb 28.2 pg (27.0-32.0); Mean Platelet Vol. 10.3 fl (6.2-12.0); Monocyte# 0.33 X10^3/uL; Monocyte% 3.3 % (0-10); NRBC Flagged by Analyzer 0 % (0-5); Neutrophil # 7.03 X10^3/uL (2.7-7.7); Neutrophil % 70.3 % (47-70); Platelet Count 270 K/mm3 (150-450); RBC Distribution Width CV 12.8 % (11.6-14.6); RBC Distribution Width SD 42.5 fl (35.1-43.9); Red Blood Count 4.18 M/mm3 (4.2-5.4)
[2023-12-28 09:25] LABS: Internal QC Validated? YES +Cl - CLEAR BKGD; Pregnancy, Serum, hCG Quali. NEGATIVE Negative
[2023-12-28 09:27] LABS: Color, Urine Yellow (Yellow); Glucose, Dipstick Normal (Normal); Ketone-Dipstick Negative (Negative); Leukocyte Esterase-Dipstick 25 /ul (Negative); Nitrite-Dipstick Negative (Negative); Occult Blood-Urine 10 /ul (Negative); Protein-Dipstick 15 mg/dl (Negative); Specific Gravity, Urine 1.025 (1.002-1.030); Urine Bilirubin Dipstick Negative (Negative); Urine Clarity Clear (Clear); Urine Urobilinogen Normal (Normal)
[2023-12-28 09:30] LABS: Anion Gap 3 (5-15); BUN 10 mg/dL (7-18); BUN/Creat Ratio 14.9 RATIO (10-20); Calcium,Total 8.6 mg/dL (8.5-10.1); Chloride 107 mmol/L (98-107); Creatinine, Serum 0.67 mg/dL (0.55-1.02); EST Glomerular Filtration Rate 105 mL/min (>60); Est Glom Filt Rate - Afr Amer 128 mL/min (>60); Estimated Creatinine Clearance 112.31 ml/min; Glucose 103 mg/dL (74-106); Potassium 4.3 mmol/L (3.5-5.1); Sodium Level 136 mmol/L (136-145)
[2023-12-28 09:42] LABS: Bacteria 1+ /hpf (None Seen); Squamous Epithelial Cells - UA 0-5 SEEN /hpf (5-10); White Blood Cells 0-5 SEEN /hpf (0-5)
[2023-12-28 11:00] VITALS: BP 112/73; PULSE 71; RESP 16; O2SAT 97
[2023-12-28] MEDS: diazePAM 5 MG Tablet PO (11:10)
[2023-12-28 11:19] VITALS: BP 112/73; PULSE 71; RESP 16; TEMP 36.7; O2SAT 97
== END 2023-12-28 11:25 | disposition home or self-care (01) ==
PROVIDERS: Emergency Provider Emergency Medicine; PCP Nurse Practitioner Family; Visit Provider Emergency Medicine
DX: M54.16 Radiculopathy, lumbar region (principal); M62.830 Muscle spasm of back; M54.9 Dorsalgia, unspecified; F17.210 Nicotine dependence, cigarettes, uncomplicated
CPT/HCPCS: 74176; 80048; 81001; 84703; 85025; 96360; 96361; 99283; J7030; A4216

== ENCOUNTER 2024-09-10 16:00 | Outpatient (RCR) | payer BC, SELFPAY ==
--- NOTE | 2024-06-25 14:02 | HP.PTEVAL_ITS ---
Patient's Visit Information Visit Information Visit Information: ROBERT MEADOWS is a 38 year old F referred to Physical Therapy by Mary Azar PA-C with a diagnosis of Pain in multiple joints, IBD. Date of Evaluation: 06/25/24 Physical Therapist: Eric Muhammad DPT Visit Plan Frequency: 2x /Week Duration: 4 Weeks Plan: 1) aquatic PT with focus on graded exercises, focus on hip/core stability 2) lumbar, hip ROM as tolerated Subjective Subjective: Pt. is here today for her initial evaluation with diagnosis pain in multiple joints, inflammatory bowel disease. Pt. reports having issues for a few years, but her L hip/SI pain has become worse more recently over the past few months. Pt. reports her biggest issue is with her L SI/buttock region. She is doing a bit better right now as she is on prednisone for her symptoms. She has also been taking Methotrexate for ~1 month now. Pt. reports previously having issues with her L gluteal region and symptoms radiating down her L leg to her knee. pt. is sleeping okay now. She has tried some cat/cow poses without much relief. Pt. works as a [employer]. Pt. reports not much heavy lifting, but is frequently up/down. pt. is hopeful to reduce symptoms in order to get back to all recreational activities without limitations. Pain L buttock: Pain Intensity (Out of 10): 2 Pain Intensity Range: 0 and 8 Objective Objective: POSTURE: Pt. has fairly normal posture. Pt. has slight wt. shift to R side, but not much. Symmetrical iliac crest heights. PALPATION: Pt. has tenderness at L SI Region, and slight soreness at L4/L5 with spring testing. NEURO: Pt. has normal sensation in BLEs. Pt. has normal DTR of BLEs. ROM: LUMBAR SPINE: flexion min loss increase NW, ext min loss increase NW. SB mod loss bilat increase NW, rotation mod loss increase NW. Pt. has normal hip ROM, slight tightness in B HS. Slight pain with increased hip IR on Lside. MMT: RLE: ankle 5/5 throughout; knee: ext 30.0#, flex 14.4#; hip flex 24.1#. LLE: ankle 5/5 throughout; ext 25.4#, flex 16.9#; hip; flex 19.2#. GAIT: Pt. has fairly normal gait pattern. Slight lack of arm swing noted. No major trendelemburgn noted. Balance/Special Test Scores Lower Extremity Functional Score: 18 Goals Goal 1:: LTG: Pt. to be I with HEP in aquatic setting. Goal Time Frame: 4-6 Weeks Goal 2:: LTG: PT. to have increased BLE strength and core strength by 10# throughout. Goal Time Frame: 4-6 Weeks Goal 3:: LTG: Pt. to complete all work activities with 0-2/10 pain in L gluteal and lumbar region. Goal Time Frame: 4-6 Weeks Goal 4:: LTG: Pt. to have increased lumbar ROM to full without increase in lumbar/gluteal symptoms. Goal Time Frame: 4-6 Weeks Rehabilitation Potential Physical Therapy Diagnosis: Pt. has signs and symptoms consistent with pain in multiple joints and IBD. Pt. has marked B hip abd core weakness and would benefit from PT to work on progressive graded exercises and strengthening. Rehabilitation Potential: Good Anticipated Interventions Patient/Client Instruction: Educate patient on: Condition, Plan of Care, Risk Factors and Benefits of Fitness Program For the Purpose of:: To facilitate caregiver knowledge, To improve self management, To prevent re-injury, To improve ability to perform tasks related to life management and To improve tolerance to ADL's Text: Thank you for the opportunity to evaluate your patient. For Medicare and Medicare HMO plans, please review the plan of care and approve it. It will need to be FAXED BACK to us at [phone] for Medicare purposes. For Medicare only, by signing this I certify the plan of care. Please let me know if there are questions or concerns regarding this plan of care. Physician Signature: Date:
--- NOTE | 2024-07-26 10:11 | HP.PTREVAL ---
Re-Evaluation Intro: Mary Azar PA-C, It has been my pleasure to treat ROBERT MEADOWS over the last 6 visits for Pain in multiple joints, IBD. Please see the progress note below for an update on the physical therapy plan of care! Subjective Subjective: Pt. reports overall doing okay. She reports feeling great while she is in the pool, but the pain comes back when she gets out. Pt. rates pain at 6/10 in L buttock. Pt. repots being 25% better overall. Objective Objective/Function: ROM: LUMBAR SPINE: Flexion min loss increase NW (HS stretch), ext mod loss increase nW, SB min loss bilat increase NW, rotation min loss increase NW tightness MMT: BLEs distal 5-/5 throughout; hip: flexion 4/5, abd 4/5, ext 4/5, Core strength: poor. GAIT: Pt. has slow methodical gait pattern, better has muscle energy technique PAs: increase NW at L3-L5. Pt. has mild tenderness SLUMP test: negative Pt. continues to present with decreased lumbar ROM and marked core weakness. I would like her to continue with aquatic exercises x1 per week with focus on core stability, but also land PT x1 per week with focus on LUMBAR ROM and neutral spine stability in order to increase carry overall for HEP. Plan Plan Plan: x1day per week on LAND, x1 day per week in pool LAND: lumbar ROM (light extension, CAT/COW, rotation) and neutral spine. Progress HEP per visit POOL: core/hip stability, deep hang Balance/Gait/Functional tests Balance/Special Test Scores Oswestry Low Back Score: 20 Lower Extremity Functional Score: 18 Goals Goals Goal 1:: LTG: Pt. to be I with HEP in aquatic setting. Goal Time Frame: 4-6 Weeks Goal Progress: Progressing Goal 2:: LTG: PT. to have increased BLE strength and core strength by 10# throughout. Goal Time Frame: 4-6 Weeks Goal Progress: Progressing Goal 3:: LTG: Pt. to complete all work activities with 0-2/10 pain in L gluteal and lumbar region. Goal Time Frame: 4-6 Weeks Goal Progress: Progressing Goal 4:: LTG: Pt. to have increased lumbar ROM to full without increase in lumbar/gluteal symptoms. Goal Time Frame: 4-6 Weeks Goal Progress: Progressing Anticipated Interventions Anticipated Interventions Patient/Client Instruction: Educate patient on: Condition, Plan of Care, Risk Factors and Benefits of Fitness Program For the Purpose of:: To facilitate caregiver knowledge, To improve self management, To prevent re-injury, To improve ability to perform tasks related to life management and To improve tolerance to ADL's Re-Evaluation Ending Re-evaluation ending: Please do not hesitate to contact me at [phone] by phone or if you have questions or concerns regarding this new plan of care! Sincerely, ANDRA PrasadT
== END 2024-09-10 19:00 | disposition home or self-care (01) ==
LOC: PT 16:00
PROVIDERS: PCP Nurse Practitioner Family; Referring Provider Physician Assistant; Visit Provider Physician Assistant
DX: M25.50 Pain in unspecified joint (principal); K52.9 Noninfective gastroenteritis and colitis, unspecified
CPT/HCPCS: 97110; 97113; 97161; 97530